=== PATIENT | male | born 1955 | race Caucasian/White ===

== ENCOUNTER → 2016-09-21 | Outpatient (CLI) | payer BC | LOC: LAB 16:58 | DX: R07.9 Chest pain, unspecified (principal); R53.83 Other fatigue ==

== ENCOUNTER 2018-01-02 13:30 | Outpatient (RCR) | payer OTHER | END 2018-01-06 08:23 | disposition home or self-care (01) | LOC: CARDREHAB 13:30 | DX: Z48.812 Encounter for surgical aftercare following surgery on the circulatory system (principal); Z95.5 Presence of coronary angioplasty implant and graft ==

== ENCOUNTER → 2018-02-02 | Outpatient (CLI) | payer OTHER ==
[2018-02-02 10:38] LABS: URINE APPEARANCE CLOUDY; URINE BILIRUBIN NEGATIVE (NEGATIVE); URINE BLOOD TRACE (NEGATIVE); URINE COLOR YELLOW; URINE GLUCOSE NEGATIVE (NEGATIVE); URINE KETONE NEGATIVE (NEGATIVE); URINE LEUKOCYTE ESTERASE NEGATIVE (NEGATIVE); URINE NITRATE NEGATIVE (NEGATIVE); URINE PROTEIN(semi-quant) 1+ mg/dL (NEGATIVE); URINE UROBILINOGEN NORMAL (NORMAL)
[2018-02-02 10:39] LABS: URINE MUCUS PRESENT (NOT PRESENT)
== END ==
LOC: RAD 09:47
PROVIDERS: Urology
DX: N20.2 Calculus of kidney with calculus of ureter (principal); R31.1 Benign essential microscopic hematuria

== ENCOUNTER → 2018-07-31 | Outpatient (CLI) | payer OTHER | LOC: RAD 13:58 | DX: R07.9 Chest pain, unspecified (principal); Z98.890 Other specified postprocedural states; Z95.1 Presence of aortocoronary bypass graft ==

== ENCOUNTER 2018-08-28 13:40 | Outpatient (RCR) | payer OTHER | END 2018-10-12 | disposition still patient (30) | LOC: CARDREHAB | DX: Z95.1 Presence of aortocoronary bypass graft (principal) ==

== ENCOUNTER → 2019-02-01 | Outpatient (CLI) | payer OTHER | LOC: LAB 15:58 | DX: R07.9 Chest pain, unspecified (principal) ==